=== PATIENT | male | born 1955 | race Caucasian/White ===

== ENCOUNTER 2024-03-24 10:01 | Emergency (ER) | payer MEDICARE, SELFPAY ==
[2024-03-24] VITALS (9 sets, daily range): BP systolic 122–162; BP diastolic 68–78; PULSE 94–108; RESP 18–22; TEMP 36.8; O2SAT 94–97; BMI 28.2
--- NOTE | ~2024-03-24 | XR_ITS ---
EXAMINATION: XR knee, RT CLINICAL INFORMATION: R knee pain COMPARISON: None TECHNIQUE: 2 views of the knee FINDINGS: No acute fracture or dislocation. Quadriceps tendon enthesopathy. Small suprapatellar joint effusion. Atherosclerotic vascular calcification. XR/XR knee RT 2V IMPRESSION: * No acute osseous abnormality. * Mild degenerative changes of the knee. Small suprapatellar joint effusion. Electronically signed by: Ammy Nolan MD 03/24/2024 12:01 PM EDT
--- NOTE | ~2024-03-24 | XR_ITS ---
EXAMINATION: XR ankle RT min 3V (accession [id number]), XR foot RT min 3V (accession [id number]) CLINICAL INFORMATION: R. ankle/foot pain COMPARISON: None. TECHNIQUE: AP, lateral, and oblique views of the foot and 2 views of the ankle FINDINGS: Comminuted mildly displaced fracture of the base of the fifth metatarsal with intra-articular extension. Acute appearing lateral malleoli are avulsion fracture only appreciated on the PA view of the ankle. Few additional age indeterminate punctate osseous fragments anterior to the tibiotalar joint and adjacent to the lateral malleolus may reflect sequelae of degenerative change versus age-indeterminate avulsion fracture fragments, recommend correlation with point tenderness. Plantar calcaneal spurring. No tibiotalar joint effusion. Mild soft tissue swelling about the ankle. XR/XR ankle RT min 3V IMPRESSION: 1. Comminuted mildly displaced fracture of the base of the fifth metatarsal with intra-articular extension. 2. Acute appearing lateral malleoli are avulsion fracture only appreciated on the PA view of the ankle. 3. Few additional age indeterminate punctate osseous fragments anterior to the tibiotalar joint and adjacent to the lateral malleolus may reflect sequelae of degenerative change versus age-indeterminate avulsion fracture fragments, recommend correlation with point tenderness. 4. Mild soft tissue swelling about the ankle. Electronically signed by: Ammy Nolan MD 03/24/2024 11:17 AM EDT
--- NOTE | ~2024-03-24 | CT_ITS ---
EXAMINATION: CT HEAD WITHOUT CONTRAST CT CERVICAL SPINE WITHOUT CONTRAST CLINICAL INFORMATION: Fall. Head/neck strike. COMPARISON: None available. TECHNIQUE: Contiguous axial imaging was performed from the skull base to vertex without intravenous administration of contrast. Contiguous axial imaging was performed from the upper chest through the skull base without intravenous administration of contrast. Coronal and sagittal reformats were obtained at the acquisition workstation. This CT examination was performed using dose optimization techniques as appropriate, variously including the following: *Automated exposure control. *Adjustment of mA and/or kV according to patient size (this includes techniques or standardized protocols for targeted exams where dose is matched to indication/reason for exam; i.e. extremities or head). *Use of iterative reconstruction technique. DLP: 969 mGy-cm FINDINGS: Head: There is no evidence of acute intracranial hemorrhage or edematous territorial infarction. 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 No additional loss of christine-white matter differentiation. Scattered and partially confluent hypoattenuation in the periventricular and deep white matter are consistent with moderate microangiopathy. Proportional prominence of the ventricles and sulcal spaces without evidence of obstructive hydrocephalus. No abnormal mass effect or midline shift. No extra-axial fluid collections. Calcific atherosclerotic disease of the intracranial internal carotid arteries. Calcific atherosclerotic disease of the intracranial internal carotid and vertebral arteries. No hyperdense vessel sign. No acute soft tissue or osseous abnormalities. Mild mucosal thickening of the paranasal sinuses. Mild to moderate rightward nasal septal deviation. The mastoid air cells and middle ear cavities are clear. Cervical Spine: The atlantooccipital and atlantoaxial articulations remain well aligned. Moderate degenerative arthropathy of the atlantodental articulation. Reversal of the normal cervical lordosis centered on C6. Mild right convex curvature of the cervical spine. Otherwise, there is anatomic alignment of the vertebral bodies and posterior elements. No evidence of acute fracture or subluxation. The vertebral body heights are maintained. Advanced degenerative disc disease at C7-T1. Moderate degenerative disc disease from C5-C7. Facet and uncovertebral joint arthropathy leads to osseous encroachment on the neural foramina from C2-T1. There is no prevertebral soft tissue swelling. There is a 1.8 cm heterogeneous nodule in the right thyroid lobe with peripheral calcification. The remaining cervical soft tissues are within normal limits. Moderate emphysema of the visualized lung apices. The anterior aspect of the left 1st rib is absent. CT/CT cervical spine wo IV con IMPRESSION: 1. No evidence of acute intracranial hemorrhage or edematous territorial infarction. Moderate underlying microangiopathy and generalized cerebral volume loss. 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 2. No evidence of acute fracture or traumatic subluxation of the cervical spine. Moderate multilevel degenerative spondyloarthropathy of the cervical spine. 3. There is a 1.8 cm heterogeneous nodule in the right thyroid lobe. If clinically indicated, this could be further characterized with thyroid ultrasound. 4. Emphysema. Electronically signed by: Deon Sneed DO 03/24/2024 12:47 PM EDT
--- NOTE | ~2024-03-24 | XR_ITS ---
EXAMINATION: XR ankle RT min 3V (accession [id number]), XR foot RT min 3V (accession [id number]) CLINICAL INFORMATION: R. ankle/foot pain COMPARISON: None. TECHNIQUE: AP, lateral, and oblique views of the foot and 2 views of the ankle FINDINGS: Comminuted mildly displaced fracture of the base of the fifth metatarsal with intra-articular extension. Acute appearing lateral malleoli are avulsion fracture only appreciated on the PA view of the ankle. Few additional age indeterminate punctate osseous fragments anterior to the tibiotalar joint and adjacent to the lateral malleolus may reflect sequelae of degenerative change versus age-indeterminate avulsion fracture fragments, recommend correlation with point tenderness. Plantar calcaneal spurring. No tibiotalar joint effusion. Mild soft tissue swelling about the ankle. XR/XR foot RT min 3V IMPRESSION: 1. Comminuted mildly displaced fracture of the base of the fifth metatarsal with intra-articular extension. 2. Acute appearing lateral malleoli are avulsion fracture only appreciated on the PA view of the ankle. 3. Few additional age indeterminate punctate osseous fragments anterior to the tibiotalar joint and adjacent to the lateral malleolus may reflect sequelae of degenerative change versus age-indeterminate avulsion fracture fragments, recommend correlation with point tenderness. 4. Mild soft tissue swelling about the ankle. Electronically signed by: Ammy Nolan MD 03/24/2024 11:17 AM EDT
--- NOTE | ~2024-03-24 | US_ITS ---
EXAMINATION: NONINVASIVE ASSESSMENT OF THE ARTERIES OF THE RIGHT LOWER EXTREMITIES INCLUDING BILATERAL LOWER EXTREMITY DUPLEX. CLINICAL INFORMATION: Right lower extremity cold, painful COMPARISON: None TECHNIQUE: duplex Doppler techniques with wave form analysis and measurement of velocities in the right common femoral, profunda femoral, superficial femoral, popliteal, tibial and peroneal arteries. The study was performed only at rest. FINDINGS: RIGHT LEG Common femoral artery: 68 cm/s, Multiphasic Profunda femoris artery: 81 cm/s, Multiphasic Superficial femoral artery (proximal): Occluded Superficial femoral artery (mid): Occluded Superficial femoral artery (distal): Occluded Proximal Popliteal artery: Occluded Mid posterior tibial artery: Occluded Peroneal artery: Occluded Anterior tibial artery: Occluded US/US arterial duplex LE RT IMPRESSION: Occluded right superficial femoral artery, popliteal artery, and tibial arteries. Electronically signed by: Heather Munguia MD 03/24/2024 12:17 PM EDT
--- NOTE | 2024-03-24 10:21 | ED_ITS ---
HPI - Fall General Chief Complaint: Fall Stated Complaint: FALL T-1,R ANKLE PAIN PER EMS Time Seen by Provider: 03/24/24 10:09 Source: EMS Mode of arrival: EMS Limitations: no limitations History of Present Illness ED Provider: Ariel Cam HPI Narrative: This is a 68 year old male current daily smoker presenting to the emergency department with severe right-sided ankle/foot pain that started last night status post trip and fall, patient reports he was walking from the bedroom to the bathroom, he tripped, fell forward and rolled his ankle since then has been having excruciating greater than 10/10 ankle pain and inability to move his right ankle or his right toes, he reports he feels like his right foot has frostbite, it is cold, discolored and extremely painful. Nothing like this has ever happened to him before. He denies head strike or loss of consciousness. He is not on blood thinners. He reports associated numbness however no tingling. No other injuries sustained with fall. Related Data Home Medications ?Medication ?Instructions ?Recorded ?Confirmed ibuprofen 200 mg tablet (Advil) 400 mg PO Q8H 05/15/22 Previous Rx's ?Medication ?Instructions ?Recorded meloxicam 15 mg tablet 15 mg PO DAILY #14 tabs 05/15/22 Allergies Allergy/AdvReac Type Severity Reaction Status Date / Time No Known Allergies Allergy Verified 03/24/24 10:15 Review of Systems 2 Review of Systems: Yes all other systems are reviewed and are negative PMFSH Past Medical History Attestation statement: The following information was validated with the patient. Source: old records reviewed and nursing notes reviewed Social History Social History Smoked in Last 30 Days: Yes Use of substances other than those prescribed or required for medical reasons: No Physical Exam 2 Vital Signs: Vital Signs: Last Vital Signs Temp 98.2 F 03/24/24 10:14 Pulse 94 03/24/24 10:43 Resp 21 H 03/24/24 11:18 BP 130/75 03/24/24 10:43 Pulse Ox 95 03/24/24 10:43 O2 Del Method Room Air 03/24/24 10:43 BMI result Body Mass Index 28.2 vss Appearance: Alert.? Oriented X3.? No acute distress.? Head: Normocephalic, atraumatic, no step-offs or deformities Eyes: Pupils equal, round and reactive to light.? ENT: Pharynx normal.??External ears normal, TMs normal bilaterally and EAC's normal. No pain with manipulation of external ears bilaterally. No mastoid tenderness. Neck: Normal inspection.? Neck supple.? CVS: Normal heart rate and rhythm.? Pulses normal.? Respiratory: No respiratory distress.? Breath sounds normal.? Abdomen: Soft and nontender.? Skin: Skin warm and dry.? Normal skin color.? Normal skin turgor.? Extremities: No lower extremity edema.? No calf ttp. 5/5 strength to bilateral upper extremities and LLE . RLE unable to access strength due to pain from mid shift down on the right w/ mottled appearance and cold limb, unable to palpate or auscultate DP,AT,PT, popliteal pulses on the right. LLE w/ 2+ palpable pulses. No distal sensation to RLE. Normal sensation to LLE. Back: No midline tenderness, no C-spine tenderness, full range of motion, no CVA tenderness bilaterally Neuro: Oriented X 3.? No motor deficit.? No sensory deficit. CN 2-12 intact Course Reevaluation(s) Reevaluation #1: TT to Dr. Mariah barrera awaiting response RN Allie Marinelli and LUIS ALBERTO Sotomayor atempted to auscultate pulses and palpate them --> no pulses felt or heard Time: 10:21 Reevaluation #2: Call out to Vascular Dr. Mitchell awaiting response . Also Call to [facility] trauma. Time: 10:40 Reevaluation #3: Dr. Mitchell agrees based off my explanation of exam , concerns for acute threat to limb --> heparin ordered Awaiting call from [facility] trauma. Time: 10:49 Additional Reevaluation(s): No answer from musa Spoke to Dr. Arsen BASSETT [facility] who accepts transfer at this time for suspected arterial occlusion/ threat to limb. 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 Medications Administered Generic Name Dose Route Start Last Admin Trade Name Freq PRN Reason Stop Dose Admin Heparin Sodium/Sodium Chloride 25,000 unit in 250 mls @ 0 mls/hr 03/24/24 11:00 03/24/24 11:05 Heparin Sodium,Porcine/1/2ns IVCONT 14 units/kg/hr .Q0M LUCINDA 12.14 mls/hr Administration Protocol Per Protocol Sodium Chloride 1,000 mls @ 999 mls/hr 03/24/24 11:15 03/24/24 11:09 Ns IV 03/24/24 12:15 999 mls/hr .Q1H1M LUCINDA Administration Discontinued Medications Generic Name Dose Route Start Last Admin Trade Name Lawrenceq PRN Reason Stop Dose Admin Heparin Sodium (Porcine) 6,900 unit 03/24/24 10:46 03/24/24 11:01 Heparin Sodium,Porcine 5,000 Unit/Ml Vial 80 unit/kg (6900 unit) 03/24/24 10:47 6,900 unit IVPUSH Administration ONCE ONE Hydromorphone HCl 1 mg 03/24/24 11:11 03/24/24 11:18 Hydromorphone Hcl 1 Mg/Ml Syringe IVPUSH 03/24/24 11:12 1 mg ONCE ONE Administration Protocol Morphine Sulfate 4 mg 03/24/24 10:41 03/24/24 10:46 Morphine Sulfate 4 Mg/Ml Cartridge IVPUSH 03/24/24 10:42 4 mg ONCE ONE Administration Protocol Medical Decision Making Medical Decision Making MDM Narrative: 1024 68 year old male presents s/p mechanical trip and fall last night no head strike or LOC. Not on thinners. Current daily smoker. PE No lower extremity edema.? No calf ttp. 5/5 strength to bilateral upper extremities and LLE . RLE unable to access strength due to pain from mid shift down on the right w/ mottled appearance and cold limb, unable to palpate or auscultate DP,AT,PT, popliteal pulses on the right. LLE w/ 2+ palpable pulses. No distal sensation to RLE. Normal sensation to LLE. Hx and pe concerning for acute threat to limb (arterial occlusion) , NV compromise fracture and possible dislocation. Plan- doppler, imaging, US Arterial, ortho consult STAT, labs and likely anticoagulation Differential Diagnosis Differential Diagnoses: The differential diagnosis associated with the presentation includes Hx and pe concerning for acute threat to limb, NV compromise fracture and possible dislocation. Admission/Observation Consideration of admission/observation: Escalation of care including admission/observation considered possible Consult Healthcare Provider Management of the patient was discussed with: Emergency Operator ([facility] trauma ) Lab Data MDM Lab Attestation statement: I reviewed the patient's lab results. 03/24/24 10:28 03/24/24 10:29 Labs: Lab Results 03/24/24 03/24/24 Range/Units 10:28 10:29 WBC 13.3 H (4.8-10.8) X10*3/uL RBC 5.07 (4.60-5.80) X10*6/uL Hgb 16.6 (14.0-18.0) g/dl Hct 47.6 (42.0-52.0) % MCV 93.9 (80.0-98.0) fL MCH 32.7 (27.0-33.0) pg MCHC 34.9 (31.0-36.0) g/dl RDW 14.3 (11.0-16.0) % Plt Count 163 (160-400) X10*3/uL MPV 11.2 (9.4-12.4) fL Immature Gran % (Auto) 0.4 (0.0-0.4) % Neut % (Auto) 87.2 H (45-73) % Lymph % (Auto) 4.4 L (20-40) % Gem % (Auto) 7.8 (2-11) % Eos % (Auto) 0.0 (0-4) % Baso % (Auto) 0.2 (0-2) % Lymph # (Auto) 0.6 L (1.2-4.9) X10*3/uL Gem # (Auto) 1.0 (0.1-1.2) X10*3/uL Eos # (Auto) 0.0 (0.0-0.4) X10*3/uL Baso # (Auto) 0.0 (0.0-0.2) X10*3/uL Abs Immat Gran (auto) 0.05 H (0.00-0.03) X10*3/uL Absolute Neuts (auto) 11.6 H (2.0-8.3) x10*3/uL Absolute Nucleated RBC 0.000 (0.0-0.012) X10*3/uL Nucleated RBC % (auto) 0.0 (0.0-0.2) /100WBC PT 14.2 H (11.1-13.3) SEC INR 1.2 H (0.9-1.1) aPTT Heparin Protocol 32.5 L (53-77.9) SEC Sodium 134 L (135-145) mmol/L Potassium 4.2 (3.3-5.1) mmol/L Chloride 104 (96-108) mmol/L Carbon Dioxide 18 L (22-29) mmol/L Anion Gap 16 (12-20) BUN 23 H (9-16) mg/dL Creatinine 1.62 H (0.5-1.4) mg/dL Estim Creat Clear Calc 47.5 Estimated GFR 43 Random Glucose 210 H (60-115) mg/dL Calcium 10.0 (8.4-10.2) mg/dL Magnesium 2.1 (1.6-2.6) mg/dL Total Bilirubin 0.7 (0.0-1.0) mg/dL AST 18 (5-37) U/L ALT 24 (0-40) U/L Alkaline Phosphatase 54 (39-117) U/L Total Protein 8.5 H (6.5-8.0) g/dL Albumin 4.2 (3.5-5.0) g/dL Independent Interpretation I performed an independent interpretation of an: Plain X-Ray (XR/XR ankle RT min 3V IMPRESSION: 1. Comminuted mildly displaced fracture of the base of the fifth metatarsal with intra-articular extension. 2. Acute appearing lateral malleoli are avulsion fracture only appreciated on the PA view of the ankle. 3. Few additional age indeterminate punctate osse) Radiology Impression Discussion of test interpretation with radiology: I have reviewed the radiologist's reading. External Record Review External record reviewed: Outpatient record Critical Care Time Critical Care Time Critical Care Time: Yes Total Critical Care Time: 45 Attestation: I attest to this time spent taking care of the patient, obtaining history, physical, reviewing labs, imaging, treatment of patients condition +/- specialist/hospitalist consult Discharge Plan Discharge Clinical Impression: Arterial occlusion, Acute pain of right foot Patient Disposition: [facility] Transfer Details: Dr. Leger [facility] who accepts transfer Instructions: Arthralgia (ED) Additional Instructions: Take your medications as prescribed. If you were prescribed antibiotics today, it is important that you take your medication to their entirety, do not skip any doses, do not finish them early. Follow-up with your primary care provider this week. Return to the emergency department with new or worsening symptoms. Such as fevers, chills, chest pain, shortness of breath, nausea, vomiting, dizziness, headache, vision changes, lethargy In case of emergency call 911 XR/XR ankle & foot RT min 3V IMPRESSION: 1. Comminuted mildly displaced fracture of the base of the fifth metatarsal with intra-articular extension. 2. Acute appearing lateral malleoli are avulsion fracture only appreciated on the PA view of the ankle. 3. Few additional age indeterminate punctate osseous fragments anterior to the tibiotalar joint and adjacent to the lateral malleolus may reflect sequelae of degenerative change versus age-indeterminate avulsion fracture fragments, recommend correlation with point tenderness. 4. Mild soft tissue swelling about the ankle. Prescriptions: No Action ibuprofen [Advil] 200 mg tablet 400 mg PO Q8H meloxicam 15 mg tablet 15 mg PO DAILY Qty: 14 0RF Print Language: Romanian
[2024-03-24 10:37] LABS: MANUAL DIFF FLAG NO
[2024-03-24 10:39] LABS: Basophils Percent Auto 0.2 % (0-2); Hematocrit 47.6 % (42.0-52.0); Hemoglobin 16.6 g/dl (14.0-18.0); Imm Gran Abs Auto 0.05 X10*3/uL (0.00-0.03); Imm Gran Pct Auto 0.4 % (0.0-0.4); Lymphocytes Absolute Auto 0.6 X10*3/uL (1.2-4.9); Lymphocytes Percent Auto 4.4 % (20-40); Mean Corpuscular HGB Conc 34.9 g/dl (31.0-36.0); Mean Corpuscular Hemoglobin 32.7 pg (27.0-33.0); Mean Corpuscular Volume 93.9 fL (80.0-98.0); Mean Platelet Volume 11.2 fL (9.4-12.4); Monocytes Percent Auto 7.8 % (2-11); Neutrophils Absolute Auto 11.6 x10*3/uL (2.0-8.3); Neutrophils Percent Auto 87.2 % (45-73); Platelet Count 163 X10*3/uL (160-400); Red Blood Count 5.07 X10*6/uL (4.60-5.80); Red Cell Distribution Width 14.3 % (11.0-16.0); White Blood Count 13.3 X10*3/uL (4.8-10.8)
--- NOTE | 2024-03-24 10:39 | PC.NURSE ---
Pt presents to ED from home via EMS. Reports he had a mechanical fall around 2am this morning, was walking to his bathroom when he tripped and fell. Reports this morning he noticed purple coloring to right leg and severe pain. Denies head hit or LOC, no CP or SOB. Right lower leg purple, cold to touch and no palpable pulses present. Confirmed no pulses with doppler.
[2024-03-24] MEDS: Morphine Sulfate 4 MG/ML CARTRIDGE IVPUSH (10:46)
[2024-03-24 10:49] LABS: INTERNATIONAL NORM RATIO 1.2 (0.9-1.1); Prothrombin Time 14.2 SEC (11.1-13.3)
--- NOTE | 2024-03-24 10:54 | PC.NURSE ---
2 IV lines placed. Vitals remain stable. Pt taken to CT scan
[2024-03-24 10:58] LABS: Alanine Aminotransferase 24 U/L (0-40); Albumin Level 4.2 g/dL (3.5-5.0); Alkaline Phosphatase 54 U/L (39-117); Anion Gap 16 (12-20); Aspartate Amino Transferase 18 U/L (5-37); Bilirubin Total 0.7 mg/dL (0.0-1.0); Blood Urea Nitrogen 23 mg/dL (9-16); Carbon Dioxide 18 mmol/L (22-29); Chloride 104 mmol/L (96-108); Creatinine Clr Calc Pharmacy 47.5; Estimated Glomerular Filt Rate 43; Glucose Random 210 mg/dL (60-115); Magnesium 2.1 mg/dL (1.6-2.6); Potassium 4.2 mmol/L (3.3-5.1); Sodium 134 mmol/L (135-145); Total Protein 8.5 g/dL (6.5-8.0)
[2024-03-24 11:00] LABS: PTT Heparin Drip 32.5 SEC (53-77.9)
[2024-03-24] MEDS: Heparin Sodium,Porcine 5,000 UNIT/ML VIAL 6900 UNIT IVPUSH (11:01)
[2024-03-24] MEDS: Heparin Sodium,Porcine/1/2NS 25,000 UNIT/250 ML IV.SOLN 12.14 UNIT IVCONT (11:05)
[2024-03-24] MEDS: 0.9 % Sodium Chloride 1,000 ML 999 ML IV (11:09)
--- NOTE | 2024-03-24 11:11 | PC.NURSE ---
Heparin drip started per MAR with 2 RNs verifying. Bed weight confirmed X2
[2024-03-24] MEDS: HYDROmorphone HCl 1 MG/ML SYRINGE IVPUSH ×2 (11:18→11:35)
--- NOTE | 2024-03-24 11:22 | PC.NURSE ---
Pt NSR on electronics department manager. US at bedside at this time.
[2024-03-24] MEDS: fentaNYL citrate/PF 100 MCG/2 ML VIAL IVPUSH (12:11)
--- NOTE | 2024-03-24 12:22 | PC.NURSE ---
Attempted to call [facility] X2 to give nurse to nurse, no answer. will try again
--- NOTE | 2024-03-24 12:36 | PC.NURSE ---
Report given to RN at [facility]
== END 2024-03-24 12:36 | disposition short-term general hospital (02) ==
PROVIDERS: Physician Assistant; Emergency Provider Emergency Medicine
DX: I82.411 Acute embolism and thrombosis of right femoral vein (principal); I82.431 Acute embolism and thrombosis of right popliteal vein; I82.441 Acute embolism and thrombosis of right tibial vein; I82.451 Acute embolism and thrombosis of right peroneal vein; M25.571 Pain in right ankle and joints of right foot; S99.911A Unspecified injury of right ankle, initial encounter; W01.0XXA Fall on same level from slipping, tripping and stumbling without subsequent striking against object, initial encounter; Y93.89 Activity, other specified; Y92.9 Unspecified place or not applicable; Y99.9 Unspecified external cause status; M79.661 Pain in right lower leg
CPT/HCPCS: 36415; 70450; 72125; 73560; 73610; 73630; 80053; 83735; 85025; 85610; 85730; 93926; 96374; 96375; 99284; 99285; J1170; J1644; J2270; J3010